=== PATIENT | female | born 1960 | race Caucasian/White ===

== ENCOUNTER 2016-08-14 15:18 | Emergency (ER) | payer BC ==
[~2016-08-14] VITALS: Ht 165.1 cm; Wt 70.0 kg
[2016-08-14] MEDS ORDERED: MORPHINE SULFATE 10 MG/ML CPJ IM ONE (19:15)
[2016-08-14 21:33] VITALS: BP 138/76
== END 2016-08-14 22:13 | disposition home or self-care (01) ==
LOC: ER 15:20
DX: S00.03XA Contusion of scalp, initial encounter (principal); T14.8 Other injury of unspecified body region; M54.2 Cervicalgia; W20.1XXA Struck by object due to collapse of building, initial encounter; Y93.89 Activity, other specified; Y92.512 Supermarket, store or market as the place of occurrence of the external cause; Y99.8 Other external cause status
CPT/HCPCS: 70450; 72125; 96372; 99284; J2270; Z7610